=== PATIENT | male | born 1965 | race Caucasian/White ===

== ENCOUNTER 2017-05-28 16:20 | Emergency (ER) | payer BC ==
--- NOTE | 2017-05-28 16:24 | UC ---
HPI Febrile Illness - HPI Summary HPI Summary: 52 YEAR OLD MALE PRESENTS WITH COMPLAINS OF FEVER AND IS CONCERNED ABOUT LYME DISEASE. - History of Current Complaint Time Seen by Provider: 05/28/17 16:23 Hx Obtained From: Patient Onset/Duration: Started Minutes Ago Timing: Constant Initial Severity: Moderate Current Severity: Moderate Pain Scale Used: 0-10 Numeric - 4 - Allergy/Home Medications Allergies/Adverse Reactions: Allergies Allergy/AdvReac Type Severity Reaction Status Date / Time No Known Allergies Allergy Verified 11/24/16 14:27 PMH/Surg Hx/FS Hx/Imm Hx Previously Healthy: Yes Review of Systems Constitutional: Fever, Fatigue Skin: Negative Eyes: Negative ENT: Negative Respiratory: Negative Cardiovascular: Negative Gastrointestinal: Negative Genitourinary: Negative Motor: Negative Neurovascular: Negative Musculoskeletal: Negative Neurological: Negative Psychological: Negative All Other Systems Reviewed And Are Negative: Yes Physical Exam Triage Information Reviewed: Yes Eye Exam: Normal ENT Exam: Normal Dental Exam: Normal Neck exam: Normal Neck: Positive: 1 Respiratory Exam: Normal Cardiovascular Exam: Normal Abdominal Exam: Normal Musculoskeletal Exam: Normal Neurological Exam: Normal Psychological Exam: Normal Skin Exam: Normal Course/Dx - Diagnoses Clinic Provider Diagnoses: FEVER Discharge - Discharge Plan Condition: Stable Disposition: HOME Prescriptions: DOXYcycline CAP(*) [DOXYcycline 100MG CAP(*)] 100 mg PO BID #42 cap Patient Education Materials: Lyme Disease (ED), Tick Bite (ED), Fever in Adults (ED) Referrals: Caio Buckner MD [Primary Care Provider] -
[2017-05-28 16:32] VITALS: BP 120/80
[2017-05-29 11:28] LABS: Hematocrit 42 % (42-52); Hemoglobin 14.3 g/dl (14.0-18.0); Mean Corpuscular HGB Conc 34 g/dl (31-36); Mean Corpuscular Hemoglobin 29 pg (27-31); Mean Corpuscular Volume 84 fL (80-94); Mean Platelet Volume 9 um3 (7.4-10.4); Red Blood Count 4.96 10^6/ul (4.0-5.4); Red Cell Distribution Width 13 % (10.5-15); White Blood Count 5.8 10^3/ul (3.5-10.8)
[2017-05-29 11:29] LABS: Add Diff/Slide Review? Slide Review Added; Comments Flag Yes
[2017-05-29 11:37] LABS: Albumin 4.2 g/dL (3.2-5.2); BUN/Creatinine Ratio 16.8 (8-20); Calcium 9.1 mg/dL (8.6-10.3); EGFR African American 87.3 (>60); EGFR Non-African American 67.9 (>60); Globulin 2.7 g/dL (2-4); Potassium 4.3 mmol/L (3.5-5.0); Total Bilirubin 0.3 mg/dL (0.2-1.0); Total Protein 6.9 g/dL (6.4-8.9)
== END 2017-05-28 16:50 | disposition home or self-care (01) ==
LOC: UCEAST 16:20
DX: R50.9 Fever, unspecified (principal)
CPT/HCPCS: 36415; 80053; 85025; 86618; 99212; G0463

== ENCOUNTER 2018-04-26 03:14 | Emergency (ER) | payer BC ==
[2018-04-26] MEDS ORDERED: Aspirin 81 mg CHEW TAB* 81 MG TAB.CHEW PO ONE (03:28)
[2018-04-26] MEDS ORDERED: Famotidine TAB* 20 MG PO ONE (03:29)
[2018-04-26] MEDS ORDERED: Al Hydrox/Mg Hydrox/Simet LIQ* 30 ML UDC PO ONE (03:29)
[2018-04-26] MEDS ORDERED: Lidocaine 2% VISCOUS* 15 ML UDC PO ONE (03:29)
[2018-04-26 03:44] LABS: ABS Basophils 0 10^3/ul (0-0.2); ABS Eosinophils 0.3 10^3/ul (0-0.6); ABS Monocytes 0.8 10^3/ul (0-0.8); ABS Neutrophils 4.5 10^3/ul (1.5-7.7); ABS Nucleated RBC 0 10^3/ul; Eosinophil % 3.8 % (0-6); Hematocrit 38 % (42-52); Hemoglobin 13.1 g/dl (14.0-18.0); Lymphocyte % 25.8 % (25-47); Mean Corpuscular HGB Conc 34 g/dl (31-36); Mean Corpuscular Hemoglobin 29 pg (27-31); Mean Corpuscular Volume 85 fL (80-94); Mean Platelet Volume 7.8 um3 (7.4-10.4); Nucleated Red Blood Cells % 0; Platelet Count 188 10^3/ul (150-450); Red Blood Count 4.52 10^6/ul (4.00-5.40); Red Cell Distribution Width 14 % (10.5-15); White Blood Count 7.6 10^3/ul (3.5-10.8)
[2018-04-26 04:01] LABS: EGFR Non-African American 62.5 (>60)
[2018-04-26 04:31] VITALS: BP 119/76
--- NOTE | 2018-04-26 06:04 | ED ---
HPI Chest Pain - HPI Summary HPI Summary: Patient is a 53 y/o M w/ c/o substernal chest pain onsetting today at 1900. Chest pain does not radiate, no SOB, no N/V/D, no other Sx reported. He reports past Hx of present Sx but prior episodes would eventually resolve. This pain has been persistent. He reports normal routine today. He notes syncopal episode 15 years ago. No FMHx of early AK, but dad had AK at 91. He occasionally smokes cigars, is not on any home medications. In room, pain is rated 3/10 and described as dull. Allergies reviewed. Nothing is reported to aggravate/ alleviate Sx. - History of Current Complaint Chief Complaint: EDDysrhythmPalp Time Seen by Provider: 04/26/18 03:28 Hx Obtained From: Patient Onset/Duration: Started Hours Ago - onset 1899, Still Present Timing: Constant Current Severity: Mild - 3/10 Pain Intensity: 3 Pain Scale Used: 0-10 Numeric - 3/10 Chest Pain Location: Mid Sternal Chest Pain Radiates: No Character: Dull/Aching Aggravating Factor(s): Nothing Alleviating Factor(s): Nothing Associated Signs and Symptoms: Positive: Other: - NEGATIVE: diarrhea. Negative : Shortness of Breath, Nausea, Vomiting - Allergy/Home Medications Allergies/Adverse Reactions: Allergies Allergy/AdvReac Type Severity Reaction Status Date / Time bee venom protein (honey bee) Allergy Swelling Verified 04/26/18 03:30 Home Medications: Home Medications Cyanocobalamin (Vitamin B-12) [Vitamin B-12] 2,000 mcg PO DAILY 04/26/18 [ History Confirmed 04/26/18] Fenugreek Seed Extract [Fenugreek] 500 mg PO DAILY 04/26/18 [History Confirmed 04/26/18] Lactobacillus Acidophilus [Probiotic Acidophilus] 1 each PO DAILY 04/26/18 [ History Confirmed 04/26/18] PMH/Surg Hx/FS Hx/Imm Hx Endocrine/Hematology History: Denies: Hx Diabetes, Hx Thyroid Disease Cardiovascular History: Denies: Hx Hypertension Musculoskeletal History: Denies: Hx Rheumatoid Arthritis, Hx Osteoporosis - Surgical History Surgery Procedure, Year, and Place: orchiopexy right sided, lasix surgery, FESS bilateral 1997, right great toe surgery - Immunization History Date of Tetanus Vaccine: utd Date of Influenza Vaccine: fall 2016 Infectious Disease History: No Infectious Disease History: Denies: Traveled Outside the [place] in Last 30 Days - Family History Known Family History: Positive: Cardiac Disease - father had AK - Social History Alcohol Use: Occasionally Substance Use Type: Reports: None Smoking Status (MU): Never Smoked Tobacco Review of Systems Positive: Chest Pain Negative: Shortness Of Breath Negative: Vomiting, Diarrhea, Nausea All Other Systems Reviewed And Are Negative: Yes Physical Exam - Summary Physical Exam Summary: Appearance: Well appearing, no pain distress Skin: warm, dry, reflects adequate perfusion Head/face: normal Eyes: EOMI, SAÚL ENT: normal Neck: supple, non-tender Respiratory: CTA, breath sounds present Cardiovascular: RRR, pulses symmetrical Abdomen: non-tender, soft Bowel Sounds: present Musculoskeletal: normal, strength/ROM intact Neuro: normal, sensory motor intact, A&Ox3 Triage Information Reviewed: Yes Vital Signs On Initial Exam: Initial Vitals Temp Pulse Resp BP Pulse Ox 97.7 F 58 15 134/90 98 04/26/18 03:17 04/26/18 03:17 04/26/18 03:17 04/26/18 03:17 04/26/18 03:17 Vital Signs Reviewed: Yes Diagnostics - Vital Signs Vital Signs Temp Pulse Resp BP Pulse Ox 04/26/18 04:30 97.7 F 55 20 119/76 97 04/26/18 03:17 97.7 F 58 15 134/90 98 - Laboratory Lab Results: Lab Results 04/26/18 04/26/18 04/26/18 Range/Units 03:37 03:37 03:37 WBC 7.6 (3.5-10.8) 10^3/ul RBC 4.52 (4.00-5.40) 10^6/ul Hgb 13.1 L (14.0-18.0) g/dl Hct 38 L (42-52) % MCV 85 (80-94) fL MCH 29 (27-31) pg MCHC 34 (31-36) g/dl RDW 14 (10.5-15) % Plt Count 188 (150-450) 10^3/ul MPV 7.8 (7.4-10.4) um3 Neut % (Auto) 59.9 (38-83) % Lymph % (Auto) 25.8 (25-47) % Dukes % (Auto) 10.0 H (0-7) % Eos % (Auto) 3.8 (0-6) % Baso % (Auto) 0.5 (0-2) % Absolute Neuts (auto) 4.5 (1.5-7.7) 10^3/ul Absolute Lymphs (auto) 2.0 (1.0-4.8) 10^3/ul Absolute Monos (auto) 0.8 (0-0.8) 10^3/ul Absolute Eos (auto) 0.3 (0-0.6) 10^3/ul Absolute Basos (auto) 0 (0-0.2) 10^3/ul Absolute Nucleated RBC 0 10^3/ul Nucleated RBC % 0 Sodium 138 (135-145) mmol/L Potassium 4.0 (3.5-5.0) mmol/L Chloride 105 (101-111) mmol/L Carbon Dioxide 28 (22-32) mmol/L Anion Gap 5 (2-11) mmol/L BUN 22 (6-24) mg/dL Creatinine 1.21 H (0.67-1.17) mg/dL Est GFR ( Amer) 75.6 (>60) Est GFR (Non-Af Amer) 62.5 (>60) BUN/Creatinine Ratio 18.2 (8-20) Glucose 97 (70-100) mg/dL Lactic Acid 0.5 (0.5-2.0) mmol/L Calcium 8.9 (8.6-10.3) mg/dL Total Bilirubin 0.40 (0.2-1.0) mg/dL AST 14 (13-39) U/L ALT 15 (7-52) U/L Alkaline Phosphatase 47 (34-104) U/L Total Creatine Kinase 126 (10-223) U/L Troponin I 0.00 (<0.04) ng/mL B-Natriuretic Peptide ( - 100) pg/mL Total Protein 6.7 (6.4-8.9) g/dL Albumin 4.2 (3.2-5.2) g/dL Globulin 2.5 (2-4) g/dL Albumin/Globulin Ratio 1.7 (1-3) 04/26/18 Range/Units 03:37 WBC (3.5-10.8) 10^3/ul RBC (4.00-5.40) 10^6/ul Hgb (14.0-18.0) g/dl Hct (42-52) % MCV (80-94) fL MCH (27-31) pg MCHC (31-36) g/dl RDW (10.5-15) % Plt Count (150-450) 10^3/ul MPV (7.4-10.4) um3 Neut % (Auto) (38-83) % Lymph % (Auto) (25-47) % Dukes % (Auto) (0-7) % Eos % (Auto) (0-6) % Baso % (Auto) (0-2) % Absolute Neuts (auto) (1.5-7.7) 10^3/ul Absolute Lymphs (auto) (1.0-4.8) 10^3/ul Absolute Monos (auto) (0-0.8) 10^3/ul Absolute Eos (auto) (0-0.6) 10^3/ul Absolute Basos (auto) (0-0.2) 10^3/ul Absolute Nucleated RBC 10^3/ul Nucleated RBC % Sodium (135-145) mmol/L Potassium (3.5-5.0) mmol/L Chloride (101-111) mmol/L Carbon Dioxide (22-32) mmol/L Anion Gap (2-11) mmol/L BUN (6-24) mg/dL Creatinine (0.67-1.17) mg/dL Est GFR ( Amer) (>60) Est GFR (Non-Af Amer) (>60) BUN/Creatinine Ratio (8-20) Glucose (70-100) mg/dL Lactic Acid (0.5-2.0) mmol/L Calcium (8.6-10.3) mg/dL Total Bilirubin (0.2-1.0) mg/dL AST (13-39) U/L ALT (7-52) U/L Alkaline Phosphatase (34-104) U/L Total Creatine Kinase (10-223) U/L Troponin I (<0.04) ng/mL B-Natriuretic Peptide 11 ( - 100) pg/mL Total Protein (6.4-8.9) g/dL Albumin (3.2-5.2) g/dL Globulin (2-4) g/dL Albumin/Globulin Ratio (1-3) Result Diagrams: 04/26/18 03:37 04/26/18 03:37 Lab Statement: Any lab studies that have been ordered have been reviewed, and results considered in the medical decision making process. - Radiology CXR Xray Interpretation: No Acute Changes Radiology Interpretation Completed By: ED Physician - negative CXR - EKG 0324 Cardiac Rate: NL - rate of 73 bpm EKG Rhythm: Sinus Rhythm ST Segment: Normal EKG Interpretation: normal axis and intervals Re-Evaluation - Re-Evaluation First Eval Re-Evaluation Time: 04:17 Change: Improved Comment: Patient reports he is feeling better. He will be discharged to home. Patient is agreeable with this plan. 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 He has had GI disease in the past. EKG, troponin and chest x-ray all negative. His symptoms are resolved with GI medications here. We will continue the same and he'll follow up closely with his primary care physician. His heart scores a 0. He rode his bike and did [place] hiking yesterday without any worsening of discomfort. - Chest Pain Differential Diagnosis/HQI/PQRI: Acute AK, ACS, Angina, Chest Wall, GI Disease, Lower Respiratory Infection - Diagnoses Provider Diagnoses: Atypical chest pain, Esophagitis Discharge - Sign-Out/Discharge Documenting (check all that apply): Patient Departure - discharge - Discharge Plan Condition: Improved Disposition: HOME Prescriptions: Famotidine TAB* [Pepcid 20 MG TAB*] 20 mg PO BID #30 tab Sucralfate [Carafate] 1 gm PO TID #30 tablet Patient Education Materials: Esophagitis (ED) Referrals: Juan Martinez MD [Primary Care Provider] - Additional Instructions: Cut back and protein supplementation. Avoid spicy foods or anti-inflammatory medications. Stay well-hydrated. Return with exertional chest pain, shortness of breath, dark or maroon colored stool, worse, new symptoms or other concerns as discussed - Billing Disposition and Condition Condition: IMPROVED Disposition: Home - Attestation Statements Document Initiated by Scribe: Yes Documenting Scribe: Armin Kuhn Provider For Whom Scribe is Documenting (Include Credential): Jesse Chakraborty MD Scribe Attestation: I, Armin Kuhn, scribed for Jesse Chakraborty MD on 04/26/18 at 0644. Scribe Documentation Reviewed: Yes Provider Attestation: The documentation as recorded by the scribe, Armin Kuhn accurately reflects the service I personally performed and the decisions made by me, Jesse Chakraborty MD
--- NOTE | 2018-04-26 07:55 | RAD ---
INDICATION: Chest pain COMPARISON: Similar chest x-ray October 15, 2009 TECHNIQUE: PA and lateral views of the chest were obtained. FINDINGS: The heart and mediastinum are normal in size and contour. The lungs are grossly clear. There is no evidence of large pleural effusion. Visualized bones are normal for the patient's age. There is no radiographic evidence of free air beneath the diaphragm IMPRESSION: No radiographic evidence of acute cardiopulmonary disease. R0
== END 2018-04-26 04:30 | disposition home or self-care (01) ==
LOC: ED 03:14
DX: R07.89 Other chest pain (principal); K20.9 Esophagitis, unspecified; F17.290 Nicotine dependence, other tobacco product, uncomplicated; Z82.49 Family history of ischemic heart disease and other diseases of the circulatory system
CPT/HCPCS: 36415; 71046; 80053; 82550; 83605; 83880; 84484; 85025; 93005; 99283; A9270-GY